=== PATIENT | female | born 1930 | race Caucasian/White ===

== ENCOUNTER 2017-04-04 08:18 | Outpatient (CLI) | payer MEDICARE, OTHER ==
--- NOTE | 2017-04-04 10:53 | CT ---
CT OF THE ABDOMEN AND PELVIS AND BILATERAL LOWER EXTREMITIES FOR RUN OFF: History: Bilateral lower extremity pain, left greater than right. This started two months ago. Histor y of femoral stents. Technique: Multiple contiguous axial images were obtained in a CTA of the chest, abdomen, and bilater al lower extremity for run off. 3D sagittal and coronal MIP reformats were performed. FINDINGS: No focal lung masses are seen. Degenerative changes are seen in the spine. There is an area of hyper enhancement in the posterior aspect of the right lobe of the liver which may represent a portal venou s shunt. The gallbladder is not seen and may have been removed. There is cortical thinning of the lef t kidney. There is prominence of the left renal pelvis and calices of the left kidney, but no signifi cant ureteral dilatation on the left. The right kidney is unremarkable. The adrenal glands, spleen, a nd pancreas are unremarkable. The large and small bowel are unremarkable. No abdominal or pelvic lymp hadenopathy are seen. Moderate atherosclerotic disease is seen in the infrarenal aorta. The celiac trunk, SMA and DOMONIQUE are p atent without significant atherosclerotic disease. The left renal artery is very small but patent. Th e right renal artery is unremarkable with mild proximal atherosclerotic disease. The aorta bifurcates into mildly diseased common iliac arteries. There is stent in the left proximal common iliac artery. The internal iliac arteries are patent with mild atherosclerotic disease. No sig nificant atherosclerotic disease is seen in the external iliac arteries. Moderate atherosclerotic disease is seen in both common femoral arteries. The profunda femoral arteri es are patent bilaterally. There is an area of short focal stenosis in the right proximal superficial femoral artery of approximately 50%. There appear to be stents in the bilateral superficial femoral arteries, distally. The popliteal arteries are patent without significant atherosclerotic disease. There is bilateral thr ee vessel run off. IMPRESSION: 1. Atrophic left kidney with prominent left renal collecting system. 2. Short area of focal stenosis in the proximal right superficial femoral artery. 3. Patent stents in the left common iliac artery and bilateral superficial femoral arteries. 4. Bilateral three vessel run off. POS: [facility]
[2017-04-04] MEDS ORDERED: Iopamidol 370 76% 100 ML VIAL ONE (13:23)
== END 2017-04-04 08:19 | disposition home or self-care (01) ==
LOC: CT 08:18
PROVIDERS: ATTEND Specialist
DX: L98.499 Non-pressure chronic ulcer of skin of other sites with unspecified severity (principal); I73.9 Peripheral vascular disease, unspecified; N28.89 Other specified disorders of kidney and ureter
CPT/HCPCS: 75635

== ENCOUNTER 2017-05-16 12:55 | Emergency (ER) | payer MEDICARE, OTHER ==
[2017-05-16 14:19] LABS: #Eosinphils 0.2 thou/uL (0.0-0.7); #Lymphocytes 0.7 thou/uL (1.20-3.40); #Monocytes 0.3 thou/uL (0.11-0.59); #Neutrophils 3.8 thou/uL (1.40-6.50); %Basophils 0.2 % (0.0-1.0); %Lymphocytes 13.8 % (21.0-51.0); %Monocytes 6.6 % (0.0-10.0); %Neutrophils 75.4 % (42.0-75.0); Mean Corpuscular HGB CONC 33.9 g/dL (32.0-36.0); Mean Corpuscular Hemoglobin 34.8 pg (27.0-31.0); Mean Platelet Volume 6.4 fL (7.4-10.4); Platelet Count 195 thou/uL (130-400); RBC Distribution Width 11.5 % (11.5-14.5)
[2017-05-16 14:30] LABS: ALT (SGPT) 13 U/L (8-55); AST (SGOT) 28 U/L (5-34); Albumin 3.8 g/dL (3.4-4.8); Alkaline Phosphatase 69 U/L (40-150); Anion Gap 12 mmol/L (10-20); BUN (Urea Nitrogen) 25 mg/dL (9.8-20.1); Bilirubin, Total 0.2 mg/dL (0.2-1.2); CK (CPK) 81 U/L (29-168); CKMB 3.1 ng/mL (0-6.6); Calc. Creatinine Clearance 0 mL/min (70-130); Calcium 9.6 mg/dL (7.8-10.44); Carbon Dioxide 27 mmol/L (23-31); Chloride 103 mmol/L (98-107); Estimated GFR-MDRD 48; Globulin 2.7 g/dL (2.4-3.5); Glucose 105 mg/dL (83-110); Lipase 15 U/L (8-78); Potassium 4.2 mmol/L (3.5-5.1); Protein, Total 6.5 g/dL (6.0-8.3); Sodium 138 mmol/L (136-145); Troponin I Less than 0.010 ng/mL (< 0.028)
--- NOTE | 2017-05-16 15:05 | RAD ---
PORTABLE CHEST ONE VIEW: Date: 05-16-17 Time: 2:23 p.m. History: Dizziness, nausea. FINDINGS: The heart size is normal. The aorta is tortuous. The lungs are well expanded without focal areas of c onsolidation, pneumothorax, or pleural effusions. There is evidence of old granulomatous disease. The re are post op changes in the region of the GE junction. IMPRESSION: No radiographic evidence of acute cardiopulmonary process. POS: [facility]
== END 2017-05-16 16:16 | disposition left against medical advice (07) ==
LOC: ERS 12:55
DX: Z53.21 Procedure and treatment not carried out due to patient leaving prior to being seen by health care provider (principal)
CPT/HCPCS: 36415; 71045; 80053; 82550; 82553; 83690; 84484; 85025; 93005

== ENCOUNTER 2017-05-29 09:34 | Emergency (ER) | payer MEDICARE, OTHER ==
[2017-05-29 10:26] LABS: #Eosinphils 0.2 thou/uL (0.0-0.7); #Lymphocytes 1.3 thou/uL (1.20-3.40); #Monocytes 0.3 thou/uL (0.11-0.59); #Neutrophils 3.3 thou/uL (1.40-6.50); %Eosinophils 3.4 % (0.0-10.0); %Lymphocytes 24.6 % (21.0-51.0); %Monocytes 6.6 % (0.0-10.0); %Neutrophils 64.5 % (42.0-75.0); Hemoglobin 14.2 g/dL (12.0-16.0); Mean Corpuscular HGB CONC 32.1 g/dL (32.0-36.0); Mean Corpuscular Hemoglobin 33.5 pg (27.0-31.0); Platelet Count 445 thou/uL (130-400); RBC Distribution Width 11.9 % (11.5-14.5); Red Blood Cell (RBC) Count 4.23 mill/uL (4.20-5.40); White Blood Cell (WBC) Count 5.2 thou/uL (4.8-10.8)
[2017-05-29 10:59] LABS: CKMB 1.4 ng/mL (0-6.6); Troponin I Less than 0.010 ng/mL (< 0.028)
[2017-05-29 11:01] LABS: Bilirubin Negative (Negative); Blood, Urine Negative (Negative); Clarity CLEAR (Clear); Glucose, Urine (Dipstick) Negative (Negative); Leukocyte Trace (Negative); Nitrite Negative (Negative); Protein, Urine (Dipstick) Negative (Neg-Trace); Specific Gravity, Urine 1.013 (1.002-1.036); Urobilinogen 0.2 mg/dL (0.2-1.0)
[2017-05-29 11:03] LABS: Bacteria/HPF None Seen HPF (None Seen); Hyaline Casts/LPF 0-3 HYALINE CAST LPF (0-3 Hyaline); Pathc Cast-AUWi Flag 0.14 (0-2.49); Squamous Epithelial 0-3 HPF (0-3); WBC/HPF 0-3 HPF (0-3)
[2017-05-29 11:46] LABS: ALT (SGPT) 11 U/L (8-55); AST (SGOT) 20 U/L (5-34); Albumin 3.5 g/dL (3.4-4.8); Alkaline Phosphatase 76 U/L (40-150); Anion Gap 13 mmol/L (10-20); BUN (Urea Nitrogen) 17 mg/dL (9.8-20.1); Bilirubin, Total 0.5 mg/dL (0.2-1.2); CK (CPK) 41 U/L (29-168); Calc. Creatinine Clearance 0 mL/min (70-130); Calcium 9.2 mg/dL (7.8-10.44); Carbon Dioxide 25 mmol/L (23-31); Chloride 104 mmol/L (98-107); Estimated GFR-MDRD 56; Globulin 2.9 g/dL (2.4-3.5); Glucose 100 mg/dL (83-110); Lipase 21 U/L (8-78); Potassium 3.9 mmol/L (3.5-5.1); Protein, Total 6.4 g/dL (6.0-8.3); Sodium 138 mmol/L (136-145)
[2017-05-29] MEDS ORDERED: ISOVUE-370 76%-LOCM 1 ML ONE (14:47)
[2017-05-29] MEDS ORDERED: Iopamidol 370 76% 50 ML VIAL FS ONE (14:47)
--- NOTE | 2017-05-29 15:27 | CT ---
CT ABDOMEN AND PELVIS WITH CONTRAST: Comparison: 04-04-17 History: Abdominal pain, left sided back pain since Donnie. Technique: Multiple contiguous axial images were obtained in a CT of the abdomen and pelvis with cont rast. PO contrast was administered. Coronal reformats were performed. FINDINGS: The gallbladder has been removed. There is mild central intrahepatic biliary dilatation, likely reser voir effect from prior cholecystectomy. There is an area of hyper enhancement in the right lobe of th e liver which may represent a DANILO. There is a hyperdense region in the pancreatic head and insular p ortion of the pancreas measuring 2.3 x 1.0 x 3.1 cm in size. The left kidney is small and atrophic. The right kidney and adrenal glands are unremarkable. Calcific ations in the spleen are likely from prior granulomatous disease. There is moderate stool in the colon. The small bowel is unremarkable. No abdominal or pelvic lymphad enopathy are seen. Atherosclerotic calcifications are seen in the aorta. Degenerative changes are seen in the spine. The visualized inferior thorax and abdominal wall soft ti ssues are unremarkable. IMPRESSION: 1. Area of hyperdensity in the right lobe of the liver likely represents a DANILO. 2. Hypodense lesion in the inferior portion of the pancreas could represent a pancreatic neoplasm. Al ternatively, this could represent a pseudocyst. MRI of the abdomen with and without contrast/MRCP is recommended for further evaluation. POS: [facility]
--- NOTE | 2017-07-07 15:38 | EKG ---
Test Reason : FLANK PAIN Blood Pressure : / mmHG Vent. Rate : 079 BPM Atrial Rate : 079 BPM P-R Int : 146 ms QRS Dur : 076 ms QT Int : 370 ms P-R-T Axes : 061 009 041 degrees QTc Int : 424 ms Normal sinus rhythm Possible Left atrial enlargement Septal infarct , age undetermined Abnormal ECG Confirmed by ELYSE BRUNO, OLIVIA ([id number]), editor publications [employer] ([id number]) on 07/07/2017 3:37:50 PM Referred By: Confirmed By:OLIVIA PAPPAS MD
== END 2017-05-29 15:25 | disposition home or self-care (01) ==
LOC: ERS 09:34
DX: M54.5 Low back pain (principal); F17.210 Nicotine dependence, cigarettes, uncomplicated; I10 Essential (primary) hypertension; Z79.899 Other long term (current) drug therapy
CPT/HCPCS: 36415; 74177; 80053; 81003; 81015; 82553; 83690; 84484; 85025; 93005; 99284

== ENCOUNTER 2017-06-13 09:52 | Outpatient (CLI) | payer MEDICARE, OTHER ==
--- NOTE | 2017-06-13 13:05 | MRI ---
MRI ABDOMEN WITH AND WITHOUT CONTRAST: FINDINGS: At the dorsal aspect of the pancreatic head is a 1.3 x 1.8 x 2.8 cm microcystic mass with a lobular c ontour. No solid internal enhancement. There are small internal septations, which contain some tierney t enhancement. On the arterial phase of enhancement, there appears to be an area of hyperenhancement of the anterior aspect of the pancreatic tail. Although this cannot be confirmed, the sequences may reflect averagi ng from adjacent vasculature. There is a faint focal area of hyperenhancement at hepatic segment 6, which is wedge-shaped, indicati ng transient hepatic attenuation difference. This is similar to today's CT examination. There is al so a faint focal 2 mm area of hyperenhancement in hepatic segment 6, series 17, image 34, which measu res 2 mm, uncertain significance. Small hepatic cysts are present. Chronic atrophy of the left kidney with renal cortical thinning and dilatation of the left collecting system. No intrahepatic or extrahepatic biliary dilatation. No free fluid in the pelvis. No dilated loops of large or small bowel. IMPRESSION: 1. 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 There are no worrisome findings for malignancy at this time. Recommend follow-up MRI with pancrea tic protocol in six months to one year. 2. 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 3. Atrophy of the left kidney with dilatation of the collecting system. 4. Transient hepatic intensity difference, hepatic segment 5-6. POS: [facility]
[2017-06-13] MEDS ORDERED: Gadobenate Dimeglumine 529 MG/1 ML (20ML VIAL) ONE (14:54)
== END 2017-06-13 09:53 | disposition home or self-care (01) ==
LOC: MRI 09:52
PROVIDERS: ATTEND Specialist
DX: K86.3 Pseudocyst of pancreas (principal); K86.89 Other specified diseases of pancreas; N26.1 Atrophy of kidney (terminal)
CPT/HCPCS: 74183; A9579

== ENCOUNTER 2018-02-27 11:02 | Outpatient (CLI) | payer MEDICARE, OTHER ==
--- NOTE | 2018-02-27 13:31 | RAD ---
LEFT HIP 2 VIEWS: HISTORY: Hip pain. Osteoarthritis. FINDINGS: Mild to moderate osteoarthritic changes are noted. There is mild spurring from the femoral head and acetabulum. Femoral head contour is preserved. No fracture or acute lesion. IMPRESSION: Moderate degenerative changes. POS: [facility]
--- NOTE | 2018-02-27 13:32 | RAD ---
RIGHT HIP 2 VIEWS: HISTORY: Osteoarthritis. Hip pain. FINDINGS: Moderate DJD of the right hip. Femoral head contour is preserved. There is prominent spurring from the femoral head and acetabulum. No fracture or acute abnormality. IMPRESSION: Moderate osteoarthritic change. POS: [facility]
--- NOTE | 2018-02-27 13:33 | RAD ---
RIGHT KNEE 4 VIES: HISTORY: Knee pain. Osteoarthritis. FINDINGS: Moderate degenerative change noted. Mild narrowing of the medial joint space. Chondrocalcinosis. M ild spurring from the femoral condyles and tibial spines. No evidence of joint effusion. There are subchondral cystic changes. IMPRESSION: Mild to moderate degenerative change. POS: [facility]
--- NOTE | 2018-02-27 13:33 | RAD ---
LEFT KNEE 4 VIEWS: Date: 02/27/18 HISTORY: Knee pain. Osteoarthritis. FINDINGS: There are mild to moderate osteoarthritic changes. There is chondrocalcinosis. Mild spurring from the femoral condyles and tibial spines. No evidence of joint effusion. IMPRESSION: Mild to moderate degenerative change as described. POS: [facility]
== END 2018-02-27 11:03 | disposition home or self-care (01) ==
LOC: BICRAD 11:02
PROVIDERS: ATTEND Specialist
DX: M16.0 Bilateral primary osteoarthritis of hip (principal); M17.0 Bilateral primary osteoarthritis of knee

== ENCOUNTER 2018-09-20 13:39 | Outpatient (CLI) | payer MEDICARE, OTHER ==
--- NOTE | 2018-09-20 14:36 | RAD ---
RIGHT SHOULDER THREE VIEWS: History: Right shoulder pain status post fall. FINDINGS: There is marked arthritic changes of the AC joint. Some minimal changes of the glenohumeral joint spa ce. There are no signs of fracture. The bones are demineralized. IMPRESSION: No acute injury. POS: [facility]
--- NOTE | 2018-09-20 14:44 | RAD ---
RIGHT HIP TWO VIEWS: History: Right hip pain. Patient fell on 07-28-18. FINDINGS: The bones are demineralized. There are arthritic changes of the hip. There are osteophytic changes ar ound the femoral head and neck junction compatible with an element of acetabular impingement. No sign s of any fracture. Stent is partially visualized in the superficial femoral artery. IMPRESSION: Mild to moderate arthritic changes of the right hip. POS: [facility]
== END 2018-09-20 13:40 | disposition home or self-care (01) ==
LOC: BICRAD 13:39
PROVIDERS: ATTEND Specialist
DX: M25.551 Pain in right hip (principal); M25.511 Pain in right shoulder; M16.11 Unilateral primary osteoarthritis, right hip

== ENCOUNTER 2019-07-04 12:09 | Outpatient (CLI) | payer MEDICARE, OTHER ==
--- NOTE | 2019-07-04 15:56 | RAD ---
PA AND LATERAL VIEWS CHEST: 07/04/19 HISTORY: Unilateral pulmonary emphysema. Dyspnea. FINDINGS: Comparison is made with of 05/11/18. FINDINGS: Calcified granuloma in the right lung is again seen. Changes of COPD are redemonstrated. The heart si ze is normal. The aorta is tortuous. No lobar consolidation, pneumothoraces, or pleural effusions are seen. Postop changes at the GE junction are redemonstrated. IMPRESSION: Stable exam. No radiographic evidence of acute cardiopulmonary process. POS: [facility]
== END 2019-07-04 12:10 | disposition home or self-care (01) ==
LOC: BICRAD 12:09
PROVIDERS: ATTEND Specialist
DX: J43.0 Unilateral pulmonary emphysema [MacLeod's syndrome] (principal)
CPT/HCPCS: 71046

== ENCOUNTER 2019-09-16 07:00 | Emergency (ER) | payer MEDICARE, OTHER ==
[2019-09-16] MEDS ORDERED: Morphine 4 MG/ML VIAL ONE (07:54)
[2019-09-16] MEDS ORDERED: Ondansetron PF 4 MG/2 ML Vial ONE (07:54)
[2019-09-16 08:14] LABS: Hemoglobin 15.3 g/dL (12.0-16.0); Mean Corpuscular HGB CONC 31.9 g/dL (32.0-36.0); Mean Corpuscular Hemoglobin 33.2 pg (27.0-31.0); Platelet Count 234 thou/uL (130-400); RBC Distribution Width 12.8 % (11.5-14.5); Red Blood Cell (RBC) Count 4.61 mill/uL (4.20-5.40)
[2019-09-16 08:24] LABS: ALT (SGPT) 12 U/L (8-55); AST (SGOT) 23 U/L (5-34); Albumin 4.4 g/dL (3.4-4.8); Alkaline Phosphatase 118 U/L (40-110); Anion Gap 16 mmol/L (10-20); BUN (Urea Nitrogen) 16 mg/dL (9.8-20.1); Bilirubin, Total 0.5 mg/dL (0.2-1.2); Calc. Creatinine Clearance 0 mL/min (70-130); Calcium 9.5 mg/dL (7.8-10.44); Carbon Dioxide 22 mmol/L (23-31); Chloride 100 mmol/L (98-107); Estimated GFR-MDRD 49; Globulin 3.4 g/dL (2.4-3.5); Glucose 166 mg/dL (83-110); Lipase 22 U/L (8-78); Potassium 4.2 mmol/L (3.5-5.1); Protein, Total 7.8 g/dL (6.0-8.3); Sodium 134 mmol/L (136-145)
[2019-09-16 08:33] LABS: Band 2 % (5-11); Eosinophils 2 % (0-10); Lymphocytes 16 % (21-51); MDiff Complete? YES; Monocytes 4 % (0-10); Neutrophil 75 % (42-75); Platelet Clumps SLIGHT; Platelet Morphology Comment Appears Adequate; RBC Morphology Normal; White Blood Cell (WBC) Count 7.1 thou/uL (4.8-10.8)
--- NOTE | 2019-09-16 10:17 | CT ---
CT ABDOMEN AND PELVIS WITH IV CONTRAST: HISTORY: Left upper quadrant pain and left flank pain. COMPARISON: 05/29/2017. FINDINGS: There are dependent changes in the lung bases. Small cyst in the right kidney is again seen. The ar ea of THAV in the right lobe of the liver is better visualized on the previous exam. The patient is post cholecystectomy with common bile duct measuring 1 cm likely due to reservoir effect. The cystic mass in the pancreatic head/uncinate process is stable measuring 2.3 x 1 x 3.2 cm. A new cystic mass is seen in the tail of the pancreas measuring 18 x 15 x 15 mm. This has a multiloculated appearance. No abnormal pancreatic ductal dilatation is seen. Calcified granulomas in the spleen are again noted. There is scarring in the right renal cortex. At rophy of the left kidney is again seen with interval worsening of hydronephrosis and pelvicalyceal di latation likely due to UPJ obstruction. No free air, free fluid, or lymphadenopathy is seen in the abdomen or pelvis. The small bowel loops are not abnormally dilated. There is fecal material in the colon. The patient is post hysterectomy. There are vascular calcifications without evidence of aneurysmal dilatation of the abdominal aorta. There are degenerative changes in the spine. There is grade I anterolisthesis of L4 over L5 verteb ral bodies. Postop changes and metallic hardware in the left proximal humerus are seen which are new since the la st exam. IMPRESSION: 1. New cystic mass in the tail of the pancreas measuring 18 x 15 x 15 mm and stable cystic mass in t he head of the pancreas. 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 2. 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 POS: [facility]
[2019-09-16] MEDS ORDERED: Iopamidol-370 76% 500 ML 1 ML ONE (11:24)
[2019-09-16 11:47] LABS: Bilirubin Negative (Negative); Blood, Urine Negative (Negative); Glucose, Urine (Dipstick) Negative (Negative); Ketone, Urine Negative (Negative); Leukocyte Negative (Negative); Nitrite Negative (Negative); Protein, Urine (Dipstick) Negative (Neg-Trace); Specific Gravity, Urine 1.015 (1.005-1.030); Urobilinogen 0.2 mg/dL (Less than 2); pH, Urine 6.5 (5.0-9.0)
[2019-09-16 11:51] LABS: Clarity Clear (Clear)
== END 2019-09-16 12:40 | disposition home or self-care (01) ==
LOC: ERS 07:00
DX: N28.89 Other specified disorders of kidney and ureter (principal); K86.9 Disease of pancreas, unspecified; J44.9 Chronic obstructive pulmonary disease, unspecified; I10 Essential (primary) hypertension; Z87.891 Personal history of nicotine dependence; Z79.899 Other long term (current) drug therapy
CPT/HCPCS: 74177; 80053; 81003; 83690; 85025; 93005; 96361; 96374; 96375; J2270; J2405; Q9967

== ENCOUNTER 2019-11-11 10:04 | Outpatient (CLI) | payer MEDICARE, OTHER ==
--- NOTE | 2019-11-11 10:59 | ULT ---
Bilateral renal ultrasound CLINICAL INDICATION: Left UPJ obstruction hydronephrosis. COMPARISON: CTA abdomen on 09/16/2019 FINDINGS: Right kidney: There is no evidence of a renal mass, renal calculus, or hydronephrosis seen. The right kidney measures 10.1 cm x 4.6 cm. Left kidney: Severe renal cortical thinning and severe left hydronephrosis is seen and was also noted on prior CT examination. There is also severe dilatation of the renal pelvis noted on prior examination with findings on prior CT examination suggesting a UPJ type obstruction. The left kidney does appear smaller in size compared to the right kidney, but the left kidney measures 9.3 cm x 5.2 cm. Urinary bladder: Normal in appearance with prevoid urinary bladder volume of 111.6 mL and a post void urinary bladder volume of 33.7 mL. Right ureteral jet is visualized on color flow evaluation. Left ureteral jet is not visualized on this exam. IMPRESSION: 1. Severe left hydronephrosis including dilatation of the renal pelvis with findings on prior examina tion of a UPJ type obstruction. Severe left renal cortical thinning is present. 2. Normal appearance of the right kidney without hydronephrosis.
== END 2019-11-11 10:05 | disposition home or self-care (01) ==
LOC: BICULT 10:04
PROVIDERS: ATTEND Urology
DX: N13.1 Hydronephrosis with ureteral stricture, not elsewhere classified (principal)
CPT/HCPCS: 76770

== ENCOUNTER 2019-12-13 06:29 | Outpatient (CLI) | payer MEDICARE, OTHER ==
[2019-12-14 12:00] LABS: SARS-CoV-2 MS2 Positive; SARS-CoV-2 N Gene Negative; SARS-CoV-2 S Gene Negative; SARS-CoV-2 by NAA Not Detected (NotDetected); SARS-CoV-2 orf1ab Negative
== END 2019-12-13 06:30 | disposition home or self-care (01) ==
LOC: LABBT 06:29
PROVIDERS: ATTEND Orthopaedic Surgery
DX: T84.195A Other mechanical complication of internal fixation device of left femur, initial encounter (principal); Z20.828 Contact with and (suspected) exposure to other viral communicable diseases
CPT/HCPCS: 87635; U0003

== ENCOUNTER 2019-12-17 12:01 | Day surgery (SDC) | payer MEDICARE, OTHER ==
[2019-12-16 13:59] VITALS: BMI 21.6
[~2019-12-17 12:01] MED LIST: Lidocaine 1% PF 5 ML VIAL ONE; PROPOFOL 200 MG/20 ML VIAL ONE
[2019-12-17] MEDS ORDERED: Lidocaine 1% (PF) 30 ML VIAL ONE (14:11)
[2019-12-17] MEDS ORDERED: Fentanyl 100 MCG/2 ML VIAL ONE ×2 (14:58→15:23)
[2019-12-17] MEDS ORDERED: Ondansetron PF 4 MG/2 ML Vial ONE (15:40)
[2019-12-17] MEDS ORDERED: Promethazine HCl 25 MG/ML VIAL ONE ×2 (15:47→17:54)
[2019-12-17] MEDS ORDERED: hydrALAZINE 20 MG/ML VIAL ONE (16:32)
--- NOTE | 2019-12-17 17:00 | RAD ---
LEFT FEMUR ONE VIEW: 12/17/19 INDICATION: History of removal of hardware from the left femur. COMPARISON: Left femur radiograph dated 12/11/19. FINDINGS: Single submitted fluoroscopic spot image demonstrate removal of a distal interlocking screw from a l annette cephalomedullary device. There is an endograft stent within the adjacent distal thigh soft tissue s. Total fluoroscopic time was 10.1 seconds. Total exposure was 0.51 mGy. IMPRESSION: Interval removal of the distal interlocking screw from the long cephalomedullary device instrumenting a healing comminuted left intertrochanteric hip fracture. POS: [facility]
[2019-12-17] MEDS ORDERED: HYDROcodone/Acetaminophen 5/325 mg Tablet ONE (17:22)
--- NOTE | 2019-12-17 21:27 | OP ---
DATE OF PROCEDURE: 12/17/2019 OPERATION: Left femur hardware removal. PREOPERATIVE DIAGNOSIS: Painful left femoral hardware. POSTOPERATIVE DIAGNOSIS: Painful left femoral hardware. IMPLANTS: None. INDICATIONS: Ms. Wagner is an 89-year-old female, who has fractured her left femur. She has been indicated for a distal Crosslock screw removal after she has had persistent pain at this site despite conservative treatment. She wants to proceed with this operation. She has elected to proceed. DESCRIPTION OF PROCEDURE: Ms. Wagner was identified in the preoperative holding area. Her correct extremity was marked. She was carried to the operating room. She was positioned supine. General anesthesia was induced. A multidisciplinary time-out was performed. The left lower extremity was prepped and draped in a sterile fashion. We began the procedure with evaluation of the leg under intraoperative x-ray. We identified the distal Crosslock screw. We then made a small incision laterally. We spread the tissues. We then placed our screwdriver in the screw head. The screw was backed out appropriately. We took x-ray images confirming this. We thoroughly irrigated and closed with layered closure. A sterile dressing was applied. The patient was taken to the recovery room in good condition. Job ID: [id number]
== END 2019-12-17 18:27 | disposition home or self-care (01) ==
LOC: SDC 12:01
PROVIDERS: ATTEND Orthopaedic Surgery
PROC: 0QP904Z Removal of Internal Fixation Device from Left Femoral Shaft, Open Approach (ICD-10-PCS; principal; 2019-12-17)
DX: T84.84XA Pain due to internal orthopedic prosthetic devices, implants and grafts, initial encounter (principal); I10 Essential (primary) hypertension; F17.220 Nicotine dependence, chewing tobacco, uncomplicated; Z79.82 Long term (current) use of aspirin; Z79.899 Other long term (current) drug therapy
CPT/HCPCS: 76000; J0360; J0690; J2001; J2405; J2550; J2704; J3010